=== PATIENT | male | born 1990 | race Caucasian/White ===

== ENCOUNTER 2016-08-03 05:18 | Emergency (ER) | payer OTHER ==
[~2016-08-03] VITALS: Ht 172.7 cm; Wt 94.0 kg
[2016-08-03 05:25] VITALS: BP 141/74; PULSE 95; RESP 18; TEMP 98.4; O2SAT 97
[2016-08-03] MEDS ORDERED: SERO200T PO (05:31)
[2016-08-03] MEDS ORDERED: CLON1 PO (05:31)
[2016-08-03] MEDS ORDERED: CLON0.2T PO (05:41)
[2016-08-03] MEDS ORDERED: LURA1TAB2 PO (05:41)
[2016-08-03] MEDS ORDERED: BACT800T5 PO (05:45)
[2016-08-03] MEDS ORDERED: SODIUM CHLOR 0.9% 1000 ML INJ 1,000 ML IV ONE (05:45)
--- NOTE | 2016-08-03 05:45 | PD ---
HPI Chief Complaint: Alcohol/Drug Intoxication Time Seen by Provider: 05:42 Travel History International Travel<30 days: No Contact w/Intl Traveler<30days: No Traveled to known affect area: No History of Present Illness HPI 26-year-old male presents to the emergency department from the [facility] for evaluation of alcohol intoxication. Patient went to the tent for medical services at the [facility]. They apparently gave him Narcan without improvement. The patient has been drinking alcohol during the day. He also took his nightly meds, clonidine, Seroquel, what to do this evening. The patient will wake up and answer questions, but quickly falls back asleep. He does answer questions appropriately. He denies any illicit drug use. Patient complains the right great toe pain that started today. He was given a prescription for Keflex at the [facility]. Patient reports history of asthma and psychiatric history. He has no other medical problems and takes no other medications. Patient denies any head trauma or injury. He denies taking any more medication than he is supposed to. He denies depression. REPLACED BY [facility] Past Medical History Bipolar Disorder: Yes Diminished Hearing: No Past Surgical History Surgical History: No Previous Surgery Social History Alcohol Use: Yes Tobacco Use: No Substance Use: No (denies) Allergies-Medications (Allergen,Severity, Reaction): Coded Allergies: No Known Allergies (Unverified , 08/03/16) Reported Meds & Prescriptions Reported Meds & Active Scripts Active Bactrim DS (Sulfamethoxazole-Trimethoprim) 800-160 Mg Tab 1 Tab PO BID Reported Latuda (Lurasidone) 60 Mg Tab 60 Mg PO DAILY Clonidine (Clonidine HCl) 0.2 Mg Tab 0.2 Mg PO HS Seroquel (Quetiapine Fumarate) 200 Mg Tab 400 Mg PO DAILY Review of Systems Except as stated in HPI: all other systems reviewed are Neg Physical Exam Narrative GENERAL: Well-nourished, well-developed male patient, afebrile. SKIN: Focused skin assessment warm/dry. Patient has erythema and tenderness to the medial edge of the right great toenail. HEAD: Normocephalic. Atraumatic. EYES: No scleral icterus. No injection or drainage. PERRLA. NECK: Supple, trachea midline. No JVD or lymphadenopathy. CARDIOVASCULAR: Regular rate and rhythm without murmurs, gallops, or rubs. RESPIRATORY: Breath sounds equal bilaterally. No accessory muscle use. Lungs sounds are clear to auscultation. GASTROINTESTINAL: Abdomen soft, non-tender, nondistended. MUSCULOSKELETAL: No cyanosis, or edema. BACK: Nontender without obvious deformity. No CVA tenderness. Data Data Last Documented VS Vital Signs Date Time Temp Pulse Resp B/P Pulse Ox O2 Delivery O2 Flow Rate FiO2 08/03/16 07:57 97 08/03/16 07:10 91 18 152/71 Nasal Cannula 2 08/03/16 05:25 98.4 Orders Complete Blood Count With Diff (08/03/16 05:41) Basic Metabolic Panel (Bmp) (08/03/16 05:41) Alcohol (Ethanol) (08/03/16 05:41) Iv Access Insert/Monitor (08/03/16 05:41) Sodium Chlor 0.9% 1000 Ml Inj (Ns 1000 M (08/03/16 05:45) Ct Brain W/O Iv Contrast(Rout) (08/03/16 ) Drug Screen, Random Urine (08/03/16 06:45) Labs Laboratory Tests Test 08/03/16 08/03/16 05:36 06:45 White Blood Count 11.4 TH/MM3 Red Blood Count 5.42 MIL/MM3 Hemoglobin 15.2 GM/DL Hematocrit 45.2 % Mean Corpuscular Volume 83.5 FL Mean Corpuscular Hemoglobin 28.0 PG Mean Corpuscular Hemoglobin 33.6 % Concent Red Cell Distribution Width 12.7 % Platelet Count 244 TH/MM3 Mean Platelet Volume 8.9 FL Neutrophils (%) (Auto) 63.6 % Lymphocytes (%) (Auto) 25.0 % Monocytes (%) (Auto) 10.7 % Eosinophils (%) (Auto) 0.2 % Basophils (%) (Auto) 0.5 % Neutrophils # (Auto) 7.2 TH/MM3 Lymphocytes # (Auto) 2.8 TH/MM3 Monocytes # (Auto) 1.2 TH/MM3 Eosinophils # (Auto) 0.0 TH/MM3 Basophils # (Auto) 0.1 TH/MM3 CBC Comment DIFF FINAL Differential Comment Sodium Level 140 MEQ/L Potassium Level 4.0 MEQ/L Chloride Level 104 MEQ/L Carbon Dioxide Level 23.6 MEQ/L Anion Gap 12 MEQ/L Blood Urea Nitrogen 17 MG/DL Creatinine 0.91 MG/DL Estimat Glomerular Filtration 101 ML/MIN Rate Random Glucose 106 MG/DL Calcium Level 8.8 MG/DL Ethyl Alcohol Level LESS THAN 3 MG/DL Urine Opiates Screen NEG Urine Barbiturates Screen NEG Urine Amphetamines Screen NEG Urine Benzodiazepines Screen NEG Urine Cocaine Screen NEG Urine Cannabinoids Screen NEG MDM Medical Decision Making Medical Screen Exam Complete: Yes Emergency Medical Condition: Yes Medical Record Reviewed: Yes Differential Diagnosis Alcohol intoxication versus paronychia versus cellulitis Narrative Course 26-year-old male presents to the emergency department by EMS for alcohol intoxication sent by [facility]. He apparently went to the medical today complaining of right great toe pain was given prescription for Keflex and then transferred here for alcohol intoxication. CBC, BMP, alcohol level are ordered and pending. Patient is given normal saline 1 L IV bolus. CBC shows leukocytosis 11.4. BMP is unremarkable. Alcohol level is less than 3. Patient will be given an additional prescription for Bactrim. Due to lethargy of patient and negative alcohol, CT of the brain is ordered and pending. Urine drug screen is ordered and pending. Care is transferred to [facility] for further evaluation and disposition. Scripts Sulfamethoxazole-Trimethoprim (Bactrim DS)800-160 Mg Tab1 Tab PO BID #14 TAB Ref 0 Prov:Katlin Oliver 08/03/16 Katlin lOiver August 03, 2016 05:45
[2016-08-03 06:02] LABS: AUTOMATED NEUTROPHIL # 7.2 TH/MM3 (1.8-7.7); BASOPHIL # 0.1 TH/MM3 (0-0.2); BASOPHIL % 0.5 % (0.0-2.0); EOSINOPHIL % 0.2 % (0.0-4.0); HEMATOCRIT 45.2 % (39.0-51.0); HEMO FLAGS DIFF FINAL; LYMPHOCYTE # 2.8 TH/MM3 (1.0-4.8); MEAN CELL VOLUME 83.5 FL (80.0-100.0); MEAN CORPUSCULAR HGB CONC 33.6 % (32.0-36.0); MONO % 10.7 % (0.0-8.0); NEUT % 63.6 % (16.0-70.0); PLATELET COUNT 244 TH/MM3 (150-450); RED BLOOD COUNT 5.42 MIL/MM3 (4.50-5.90); RED CELL DISTRIBUTION WIDTH 12.7 % (11.6-17.2); WHITE BLOOD COUNT 11.4 TH/MM3 (4.0-11.0)
[2016-08-03 06:29] LABS: ANION GAP 12 MEQ/L (5-15); BICARBONATE 23.6 MEQ/L (21.0-32.0); BLOOD UREA NITROGEN 17 MG/DL (7-18); CHLORIDE 104 MEQ/L (98-107); GLOMERULAR FILTRATION RATE 101 ML/MIN (>89); SODIUM (NA) 140 MEQ/L (136-145)
[2016-08-03 07:10] VITALS: BP 152/71; PULSE 91; RESP 18; O2SAT 97
--- NOTE | 2016-08-03 07:11 | RADRPT ---
EXAM DATE/TIME: 08/03/2016 06:54 [facility] COMPARISON: No previous studies available for comparison. INDICATIONS : Altered mental status. RADIATION DOSE: 52.36 CTDIvol (mGy) MEDICAL HISTORY : Bipolar SURGICAL HISTORY : None. ENCOUNTER: Initial ACUITY: 1 day PAIN SCALE: 0/10 LOCATION: cranial TECHNIQUE: Multiple contiguous axial images were obtained of the head. Using automated exposure control and adj ustment of the mA and/or kV according to patient size, radiation dose was kept as low as reasonably a chievable to obtain optimal diagnostic quality images. FINDINGS: CEREBRUM: The ventricles are normal. No evidence of midline shift, mass lesion, hemorrhage or acute infarction . No extra-axial fluid collections are seen. POSTERIOR FOSSA: The cerebellum and brainstem demonstrate no acute finding. The 4th ventricle is midline. The cerebe llopontine angle is unremarkable. EXTRACRANIAL: Visualized sinuses are clear. SKULL: The calvaria is intact. No evidence of skull fracture. CONCLUSION: No acute intracranial abnormality is identified. Eldon Tom MD on August 03, 2016 at 7:08 Board Certified Radiologist. This report was verified electronically.
[2016-08-03 07:21] LABS: AMPHETAMINE, URINE NEG (NEG); BARBITURATES, URINE NEG (NEG); COCAINE, URINE NEG (NEG)
--- NOTE | 2016-08-03 07:37 | PD ---
Physical Exam Time Seen by Provider: 07:00 Narrative I received report from ADDISON Monzon at change of shift. See her note for initial evaluation and documentation of the patient. Data Data Last Documented VS Vital Signs Date Time Temp Pulse Resp B/P Pulse Ox O2 Delivery O2 Flow Rate FiO2 08/03/16 07:10 91 18 152/71 97 Nasal Cannula 2 08/03/16 05:25 98.4 Orders Complete Blood Count With Diff (08/03/16 05:41) Basic Metabolic Panel (Bmp) (08/03/16 05:41) Alcohol (Ethanol) (08/03/16 05:41) Iv Access Insert/Monitor (08/03/16 05:41) Sodium Chlor 0.9% 1000 Ml Inj (Ns 1000 M (08/03/16 05:45) Ct Brain W/O Iv Contrast(Rout) (08/03/16 ) Drug Screen, Random Urine (08/03/16 06:45) Labs Laboratory Tests Test 08/03/16 08/03/16 05:36 06:45 White Blood Count 11.4 TH/MM3 Red Blood Count 5.42 MIL/MM3 Hemoglobin 15.2 GM/DL Hematocrit 45.2 % Mean Corpuscular Volume 83.5 FL Mean Corpuscular Hemoglobin 28.0 PG Mean Corpuscular Hemoglobin 33.6 % Concent Red Cell Distribution Width 12.7 % Platelet Count 244 TH/MM3 Mean Platelet Volume 8.9 FL Neutrophils (%) (Auto) 63.6 % Lymphocytes (%) (Auto) 25.0 % Monocytes (%) (Auto) 10.7 % Eosinophils (%) (Auto) 0.2 % Basophils (%) (Auto) 0.5 % Neutrophils # (Auto) 7.2 TH/MM3 Lymphocytes # (Auto) 2.8 TH/MM3 Monocytes # (Auto) 1.2 TH/MM3 Eosinophils # (Auto) 0.0 TH/MM3 Basophils # (Auto) 0.1 TH/MM3 CBC Comment DIFF FINAL Differential Comment Sodium Level 140 MEQ/L Potassium Level 4.0 MEQ/L Chloride Level 104 MEQ/L Carbon Dioxide Level 23.6 MEQ/L Anion Gap 12 MEQ/L Blood Urea Nitrogen 17 MG/DL Creatinine 0.91 MG/DL Estimat Glomerular Filtration 101 ML/MIN Rate Random Glucose 106 MG/DL Calcium Level 8.8 MG/DL Ethyl Alcohol Level LESS THAN 3 MG/DL Urine Opiates Screen NEG Urine Barbiturates Screen NEG Urine Amphetamines Screen NEG Urine Benzodiazepines Screen NEG Urine Cocaine Screen NEG Urine Cannabinoids Screen NEG MDM Supervised Visit with MARIA G: No Narrative Course 0735: CT head with no acute findings. Urine drug screen negative. Patient medically cleared for discharge. Bactrim prescribed for home for cellulitis of the toe. Patient verbalizes understanding and agreement with treatment plan. Patient is medically cleared and stable for discharge. Discussed reasons to return to the emergency department. Instructed patient to follow up with primary care provider. Patient agrees with treatment plan. The patients vital signs are stable and the patient is stable for outpatient follow-up and treatment. Patient discharged home, stable and in no acute distress. Diagnosis Primary Impression: Cellulitis of toe of right foot Referrals: Primary Care Physician Patient Instructions: Cellulitis (ED), General Instructions Additional Instruction: Complete full course of antibiotics Warm compresses to the affected area Keep area clean and dry Ibuprofen or Tylenol as directed and as needed for pain and inflammation Follow-up with primary care provider Return to emergency department immediately with worsening of symptoms Med/Other Pt SpecificInfo: Prescription(s) given Scripts Sulfamethoxazole-Trimethoprim (Bactrim DS)800-160 Mg Tab1 Tab PO BID #14 TAB Ref 0 Prov:Katlin Oliver 08/03/16 Disposition: 01 DISCHARGE HOME Condition: Stable Liz Apple August 03, 2016 07:37
== END 2016-08-03 07:57 | disposition home or self-care (01) ==
LOC: NEPD 05:18
DX: L03.031 Cellulitis of right toe (principal); R41.82 Altered mental status, unspecified; F31.9 Bipolar disorder, unspecified; F10.129 Alcohol abuse with intoxication, unspecified; Y90.0 Blood alcohol level of less than 20 mg/100 ml; Z79.899 Other long term (current) drug therapy
CPT/HCPCS: 70450; 80048; 80307; 85025; 99284; J7030